=== PATIENT | male | born 1970 | race Caucasian/White ===

== ENCOUNTER 2023-12-16 06:08 | Outpatient (CLI) | payer BC ==
[2023-12-16] MEDS ORDERED: LIDOcaine 1%/PF 5ML 10 MG/ML VIAL ONE (06:32)
[2023-12-16] MEDS ORDERED: GADOTERATE MEGLUMINE 7.5 MMOL/15 ML VIAL IV ONE (06:32)
[2023-12-16] MEDS ORDERED: iohexol 300 MG/1 ML 50ml polymer ONE (06:32)
[2023-12-16] MEDS ORDERED: LIDOcaine 1% 30ml preserv. free vial ONE (06:32)
== END 2023-12-16 23:59 | disposition home or self-care (01) ==
LOC: RAD 06:08
PROVIDERS: ATTEND Pediatrics Sports Medicine
DX: M75.42 Impingement syndrome of left shoulder (principal); M75.20 Bicipital tendinitis, unspecified shoulder
CPT/HCPCS: 23350; 73721; 77002; A9575; J3490; Q9967; 73040